=== PATIENT | female | born 1960 | race Caucasian/White ===

== ENCOUNTER 2020-02-12 10:42 | Outpatient (CLI) | payer SELFPAY ==
--- NOTE | 2020-02-12 10:50 | XRR_ITS ---
PROCEDURE INFORMATION: Exam: XR Right Ribs with PA Chest, 3 Views Exam date and time: 02/12/2020 10:50 AM Age: 59 years old Clinical indication: Injury or trauma; Fall; Initial encounter; Blunt trauma (contusions or hematomas); Injury date: 02/03/2020; Injury details: PT states she fell x9 days ago, pain RT side lower rib area laterally TECHNIQUE: Imaging protocol: XR Right ribs 3 views with PA chest. COMPARISON: No relevant prior studies available. FINDINGS: Lungs: Unremarkable. No consolidation. Pleural space: Unremarkable. No pleural effusion. No pneumothorax. Heart/Mediastinum: Unremarkable. No cardiomegaly. Bones/joints: Unremarkable. XR/XR ribs RT mn 3V w CXR1V [id number] IMPRESSION: No acute findings.
== END 2020-02-12 10:43 | disposition home or self-care (01) ==
PROVIDERS: Family Provider Family Medicine; PCP Family Medicine; Visit Provider Nurse Practitioner
DX: R07.81 Pleurodynia (principal)
CPT/HCPCS: 71101

== ENCOUNTER → 2023-07-10 07:28 | Outpatient (BNVA) | payer OTHER, SELFPAY | PROVIDERS: Family Provider Family Medicine; PCP Family Medicine; Visit Provider Clinical Nurse Specialist Adult Health | DX: Z00.00 Encounter for general adult medical examination without abnormal findings (principal) | CPT/HCPCS: 80053; 82607; 84443; 85025; 85651; 86140 ==

== ENCOUNTER 2023-08-07 08:05 | Outpatient (CLI) | payer OTHER, SELFPAY ==
--- NOTE | 2023-08-07 08:16 | XR_ITS ---
WS: [id number] Right shoulder, 3 views, 08/07/2023 Clinical Data: right shoulder pain Comparison: None. Findings: No fractures or dislocations are seen. There is moderate osteoarthritis of the right AC joint. The ad jacent right clavicle, right scapula and ribs are normal. The soft tissues are unremarkable. Impression: Osteoarthritis of the right AC joint.
== END 2023-08-07 08:06 | disposition home or self-care (01) ==
PROVIDERS: Family Provider Family Medicine; PCP Family Medicine; Visit Provider Clinical Nurse Specialist Adult Health
DX: M19.011 Primary osteoarthritis, right shoulder (principal); M25.511 Pain in right shoulder; G89.29 Other chronic pain
CPT/HCPCS: 73030; 82306; 82746

== ENCOUNTER → 2023-10-19 07:16 | Outpatient (BNVA) | payer OTHER, SELFPAY | PROVIDERS: Family Provider Family Medicine; PCP Family Medicine; Visit Provider Clinical Nurse Specialist Adult Health | DX: J06.9 Acute upper respiratory infection, unspecified (principal) | CPT/HCPCS: 87400 ==

== ENCOUNTER 2024-01-06 08:03 | Outpatient (CLI) | payer OTHER, SELFPAY ==
--- NOTE | 2024-01-06 08:07 | XRR_ITS ---
PROCEDURE INFORMATION: Exam: XR Chest Exam date and time: 01/06/2024 8:17 AM Age: 63 years old Clinical indication: Patient HX: Chronic cough. HX of ovarian cancer TECHNIQUE: Imaging protocol: Radiologic exam of the chest. Views: 2 views. COMPARISON: CR XR ribs RT mn 3V w CXR1V [id number] 02/12/2020 10:54 AM FINDINGS: Lungs: There is bilateral central peribronchial thickening. This could be an acute viral or atypical pneumonia. Bronchitis could have this appearance. Acute or chronic asthma could have this appearance. Pleural spaces: Unremarkable. No pleural effusion. No pneumothorax. Heart/Mediastinum: Unremarkable. No cardiomegaly. Bones/joints: Mild scoliosis with mild and moderate multilevel spondylosis. XR/XR chest 2V* [id number] IMPRESSION: There is bilateral central peribronchial thickening. This could be an acute viral or atypical pneumonia. Bronchitis could have this appearance. Acute or chronic asthma could have this appearance.
== END 2024-01-06 08:04 | disposition home or self-care (01) ==
LOC: RAD 08:04
PROVIDERS: PCP Clinical Nurse Specialist Adult Health; Visit Provider Clinical Nurse Specialist Adult Health
DX: J41.0 Simple chronic bronchitis (principal)
CPT/HCPCS: 71046; 80053; 80061; 82306; 82607; 83036; 83735; 85025; 85651; 86140

== ENCOUNTER 2024-02-10 11:39 | Outpatient (CLI) | payer OTHER, SELFPAY ==
--- NOTE | 2024-02-10 12:00 | CT_ITS ---
WS: [id number] CT chest wo con [id number] HISTORY: cough, bilateral central peribronchial thickening TECHNIQUE: Axial imaging performed through the thorax. Coronal and sagittal reformats are submitted. All CT scans at [facility] use at least one of these dose optimization techniques: automated exposure control; mA and/or kV adjustment per patient size (includes targeted exams where dose is mat ched to clinical indication); or iterative reconstruction. CONTRAST: None DLP: 401.71 mGy.cm COMPARISON: Chest radiograph 01/06/2024 Lungs and central airway: Moderate pulmonary hyperexpansion. There is several small micronodules and a few scattered calcified granulomata. Multilobar areas of groundglass attenuation scattered througho ut the lungs. The most significant involvement is the periphery of the RIGHT lower lobe. There is als o involvement of the LEFT upper lobe and RIGHT upper lobe adjacent to the mediastinum. No mass or den se consolidation. Pleura: Normal. No pleural effusion. Heart and pericardium: Normal size heart with no pericardial effusion. Mediastinum and lul: No mediastinum or hilar adenopathy. Vessels: Mild atherosclerosis aorta. Normal size pulmonary artery. Chest wall and lower neck: No soft tissue masses. Upper abdomen: No adrenal mass. Visualized liver is negative. Osseous structures: Mild thoracic spondylosis. No destructive bone lesions. CT/CT chest wo con [id number] IMPRESSION: 1. Mild multi lobar groundglass attenuation. Suspect pneumonitis/respiratory b ronchiolitis related to smoking. There is no dense area of consolidation or pne umonia. Suggest 3-month interval follow-up after treatment. 2. Prior granulomatous disease. 3. No adenopathy. 4. Chronic emphysema.
== END 2024-02-10 11:40 | disposition home or self-care (01) ==
PROVIDERS: PCP Clinical Nurse Specialist Adult Health; Visit Provider Clinical Nurse Specialist Adult Health
DX: J41.0 Simple chronic bronchitis (principal); F17.200 Nicotine dependence, unspecified, uncomplicated; R91.8 Other nonspecific abnormal finding of lung field; J84.10 Pulmonary fibrosis, unspecified; M47.814 Spondylosis without myelopathy or radiculopathy, thoracic region; J43.8 Other emphysema
CPT/HCPCS: 71250

== ENCOUNTER → 2025-02-06 08:49 | Outpatient (BNVA) | payer OTHER, SELFPAY | DX: E78.5 Hyperlipidemia, unspecified (principal); E55.9 Vitamin D deficiency, unspecified | CPT/HCPCS: 80053; 80061; 82306; 82652 ==

== ENCOUNTER → 2025-02-09 07:07 | Outpatient (BNVA) | payer OTHER, SELFPAY | PROVIDERS: Visit Provider Podiatrist Foot & Ankle Surgery | DX: L60.0 Ingrowing nail (principal); G57.61 Lesion of plantar nerve, right lower limb | CPT/HCPCS: 73630 ==

== ENCOUNTER 2025-02-09 07:52 | Outpatient (CLI) | payer OTHER, SELFPAY ==
--- NOTE | 2025-02-09 07:55 | XR_ITS ---
WS: [id number] Left knee, 3 views, 02/09/2025 Clinical Data: left knee pain Comparison: None. Findings: No fractures or dislocations are seen. There is minimal medial lateral joint space narrowing with spurring of the lateral femoral condyle and lateral tibial plateau. There is a small spur of the medial femoral condyle. The posterior patella shows minimal irregularity. The soft tissues are unremarkable. XR/XR knee LT 3V* [id number] Impression: Mild osteoarthritis of the left knee.
== END 2025-02-09 07:53 | disposition home or self-care (01) ==
DX: M17.12 Unilateral primary osteoarthritis, left knee (principal); M25.762 Osteophyte, left knee
CPT/HCPCS: 73562

== ENCOUNTER → 2025-08-01 08:42 | Outpatient (BNVA) | payer OTHER, SELFPAY | DX: R07.9 Chest pain, unspecified (principal) | CPT/HCPCS: 80053; 80061; 84443 ==